=== PATIENT | male | born 2000 | race Caucasian/White ===

== ENCOUNTER 2021-09-17 14:26 | Emergency (ER) | payer OTHER ==
[~2021-09-17] VITALS: Ht 182.9 cm; Wt 99.8 kg
[2021-09-17 15:05] VITALS: BP 110/75
--- NOTE | 2021-09-17 15:10 | NUR ---
TENT2
--- NOTE | 2021-09-17 15:15 | NUR ---
BIB FAMILY C/O 01/31 SORE THROAT, COVID TESTED NEGATIVE X 9 DAYS .
--- NOTE | 2021-09-17 15:16 | NUR ---
STREP SWAB DONE.
[2021-09-17] MEDS ORDERED: PHEN177S23 PO (15:36)
[2021-09-17] MEDS ORDERED: NAPR-1704 PO (15:36)
[2021-09-17 15:42] VITALS: BP 110/75
--- NOTE | 2021-09-17 15:42 | NUR ---
Patient discharged with v/s stable. Written and verbal after care instructions given and explained. Patient alert, oriented and verbalized understanding of instructions. Ambulatory with steady gait. All questions addressed prior to discharge. ID band removed. Patient advised to follow up with PMD. Rx of NAPROSYN, CHLORASEPTIC given. Patient educated on indication of medication including possible reaction and side effects. Opportunity to ask questions provided and answered.
== END 2021-09-17 15:42 | disposition home or self-care (01) ==
LOC: MED 14:26
DX: J03.90 Acute tonsillitis, unspecified (principal); F12.90 Cannabis use, unspecified, uncomplicated; Z79.899 Other long term (current) drug therapy
CPT/HCPCS: 87081; 99283